=== PATIENT | male | born 1965 | race African-American/Black ===

== ENCOUNTER 2016-08-30 06:35 | Emergency (ER) | payer OTHER ==
[~2016-08-30] VITALS: Ht 190.5 cm; Wt 175.0 kg
[~2016-08-30 06:35] MED LIST: FLEXERIL 1010 MG/TAB PO; HCTZ PO; HCTZ12.5TAB; METHYLDO PO; MICRO-K 10 EXT10 MEQ; MICRO-K 1010 MEQ PO; MOTRIN800 MG PO; MULTIVITAMIN1 CTB PO; NAPROSYN500 MG PO; PERCOCET 325 MG1 TA2 PO; PROCARDIA10 MG; VITAMIN D 400400 IU PO; ZANTAC 7575 MG
[2016-08-30] MEDS ORDERED: FLEXERIL 1010 MG/TAB PO (07:08)
[2016-08-30] MEDS ORDERED: PERCOCET 325 MG1 TA2 PO (07:08)
[2016-08-30] MEDS ORDERED: ULTRAM 50MG TAB50 MG PO (07:08)
[2016-08-30 08:11] VITALS: BP 157/71; PULSE 94; TEMP 98.4
== END 2016-08-30 08:43 | disposition home or self-care (01) ==
LOC: COL.ER 06:35
DX: M54.5 Low back pain (principal); I10 Essential (primary) hypertension
CPT/HCPCS: J1170; J1885

== ENCOUNTER → 2016-10-09 | Outpatient (CLI) | payer OTHER ==
[~2016-10-09] MED LIST changes: +ULTRAM 50MG TAB50 MG PO
== END ==
LOC: MHCPAIN 09:01
DX: G89.29 Other chronic pain (principal); M47.817 Spondylosis without myelopathy or radiculopathy, lumbosacral region; M54.16 Radiculopathy, lumbar region; M53.3 Sacrococcygeal disorders, not elsewhere classified
CPT/HCPCS: G0463

== ENCOUNTER → 2016-11-06 | Outpatient (CLI) | payer OTHER | LOC: MHCPAIN 08:04 | DX: G89.29 Other chronic pain (principal); M47.817 Spondylosis without myelopathy or radiculopathy, lumbosacral region; M54.16 Radiculopathy, lumbar region; M53.3 Sacrococcygeal disorders, not elsewhere classified; Z87.891 Personal history of nicotine dependence | CPT/HCPCS: G0463 ==

== ENCOUNTER → 2016-11-18 | Outpatient (CLI) | payer OTHER | LOC: COL.RAD 09:21 | DX: M47.816 Spondylosis without myelopathy or radiculopathy, lumbar region (principal); M48.06 Spinal stenosis, lumbar region ==

== ENCOUNTER → 2016-11-23 | Outpatient (CLI) | payer OTHER | LOC: MHCPAIN 10:52 | DX: G89.29 Other chronic pain (principal); M47.27 Other spondylosis with radiculopathy, lumbosacral region; Z87.891 Personal history of nicotine dependence | CPT/HCPCS: G0463 ==

== ENCOUNTER → 2016-11-26 | Outpatient (CLI) | payer OTHER | LOC: MHCPAIN 09:18 | DX: M47.817 Spondylosis without myelopathy or radiculopathy, lumbosacral region (principal); M48.06 Spinal stenosis, lumbar region | CPT/HCPCS: J1100; Q9967 ==

== ENCOUNTER → 2016-12-11 | Outpatient (CLI) | payer OTHER | LOC: MHCPAIN 08:57 | DX: G89.29 Other chronic pain (principal); M47.27 Other spondylosis with radiculopathy, lumbosacral region; F17.210 Nicotine dependence, cigarettes, uncomplicated | CPT/HCPCS: G0463 ==

== ENCOUNTER → 2017-08-05 | Outpatient (CLI) | payer OTHER | LOC: COL.PUL 07:56 | DX: Z02.71 Encounter for disability determination (principal) ==

== ENCOUNTER → 2020-03-28 | Outpatient (CLI) | payer OTHER | LOC: MHCPAIN 09:30 | DX: M47.817 Spondylosis without myelopathy or radiculopathy, lumbosacral region (principal); M54.5 Low back pain | CPT/HCPCS: J1100; Q9967 ==

== ENCOUNTER → 2020-04-09 | Outpatient (CLI) | payer OTHER | LOC: MHCPAIN 10:58 | DX: M47.817 Spondylosis without myelopathy or radiculopathy, lumbosacral region (principal); M54.16 Radiculopathy, lumbar region; G89.29 Other chronic pain; E66.01 Morbid (severe) obesity due to excess calories; Z68.43 Body mass index [BMI] 50.0-59.9, adult | CPT/HCPCS: G0463 ==

== ENCOUNTER → 2020-07-09 | Outpatient (CLI) | payer OTHER | LOC: MHCPAIN 10:42 | DX: M53.3 Sacrococcygeal disorders, not elsewhere classified (principal); M47.816 Spondylosis without myelopathy or radiculopathy, lumbar region; G89.29 Other chronic pain; M54.5 Low back pain | CPT/HCPCS: G0463 ==

== ENCOUNTER → 2020-09-12 | Outpatient (CLI) | payer OTHER | LOC: MHCPAIN 09:55 | DX: M47.817 Spondylosis without myelopathy or radiculopathy, lumbosacral region (principal); M54.16 Radiculopathy, lumbar region; M53.3 Sacrococcygeal disorders, not elsewhere classified | CPT/HCPCS: G0463; J1100; Q9967 ==